=== PATIENT | male | born 1960 | race Caucasian/White ===

== ENCOUNTER → 2024-01-13 08:04 | Outpatient (REF) | payer MEDICARE, OTHER, SELFPAY | LOC: HWRAD 08:04 | PROVIDERS: ATTENDING PHYSICIAN Internal Medicine Hematology & Oncology; FAMILY PHYSICIAN Family Medicine | DX: Z87.891 Personal history of nicotine dependence (principal) | CPT/HCPCS: 71271 ==

== ENCOUNTER → 2024-05-05 13:29 | Outpatient (REF) | payer MEDICARE, OTHER, SELFPAY | LOC: RCS 13:29 | PROVIDERS: ATTENDING PHYSICIAN Orthopaedic Surgery; FAMILY PHYSICIAN Family Medicine | DX: Z01.818 Encounter for other preprocedural examination (principal) | CPT/HCPCS: 93005 ==

== ENCOUNTER → 2024-05-13 07:49 | Outpatient (REF) | payer MEDICARE, OTHER, SELFPAY | LOC: CLAB 07:49 | PROVIDERS: ATTENDING PHYSICIAN Orthopaedic Surgery | DX: M72.0 Palmar fascial fibromatosis [Dupuytren] (principal) | CPT/HCPCS: 88304 ==

== ENCOUNTER → 2024-10-23 10:02 | Outpatient (REF) | payer MEDICARE, OTHER, SELFPAY | LOC: PAVMRI 10:02 | PROVIDERS: ATTENDING PHYSICIAN Pain Medicine Interventional Pain Medicine; FAMILY PHYSICIAN Family Medicine | DX: M54.16 Radiculopathy, lumbar region (principal) | CPT/HCPCS: 72148 ==

== ENCOUNTER → 2025-01-20 08:40 | Outpatient (REF) | payer MEDICARE, OTHER, SELFPAY | LOC: HWRAD 08:40 | PROVIDERS: ATTENDING PHYSICIAN Nurse Practitioner Primary Care; FAMILY PHYSICIAN Family Medicine | DX: Z87.891 Personal history of nicotine dependence (principal) | CPT/HCPCS: 71271 ==

== ENCOUNTER → 2025-02-07 07:15 | Outpatient (REF) | payer MEDICARE, OTHER, SELFPAY ==
[2025-02-07 10:03] LABS: % Basophils 0.7 % (0-2); % Eosinophils 3.6 % (0-6); % Immature Granulocytes 0.5 % (0-0.5); % Lymphocytes 35.6 % (20.5-51.1); % Monocytes 11.3 % (1.7-9.3); % Neutrophils 48.3 % (42.2-75.2); Absolute Eosinophils 0.2 10^3/uL (0-0.7); Absolute Monocytes 0.6 10^3/uL (0.1-0.6); Absolute Neutrophils 2.7 10^3/uL (1.4-6.5); Hematocrit 44.2 % (39.0-52.0); Hemoglobin 15.1 g/dL (13.0-18.0); Mean Corp Hgb Conc. 34.2 g/dL (33.0-37.0); Mean Corpuscular Hgb 30.9 pg (27.0-31.0); Mean Corpuscular Volume 90.6 fL (80.0-94.0); Nucleated Red Blood Cells % 0 % (-); Platelet Count 236 10^3/uL (130-400); Red Blood Cell Count 4.88 10^6/uL (4.70-6.10); Red Cell Dist. Width 12.1 % (11.5-14.5); White Blood Cell Count 5.6 10^3/uL (4.8-10.8)
== END ==
LOC: HWLAB 07:15
PROVIDERS: ATTENDING PHYSICIAN Internal Medicine Hematology & Oncology; FAMILY PHYSICIAN Family Medicine
DX: C92.11 Chronic myeloid leukemia, BCR/ABL-positive, in remission (principal)
CPT/HCPCS: 36415; 81206; 85025

== ENCOUNTER 2025-08-30 22:12 | Emergency (ER) | payer MEDICARE, OTHER, SELFPAY ==
[2025-08-30 22:16] VITALS: BP 132/79
[2025-08-30 22:56] VITALS: BMI 27.0
--- NOTE | 2025-08-30 23:10 | ED.GENMED ---
History of Present Illness
General
Chief Complaint: Musculo-Skeletal Complaint
Source: patient
Time Seen by Provider: 08/30/25 23:04
History of Present Illness
History of Present Illness:
65-year-old male presents emergency room complaint right wrist pain. Patient began having pain this morning. He noticed when he woke up. Pain seemed to increased in intensity throughout the day. It is worse with movement of the wrist. No fever,
chills, nausea or vomiting. He denies any recent injury that he can recall. Patient is right-hand dominant. No known history of gout. No previous operations to that with this wrist. Patient took Flexeril primarily for back pain earlier this
evening without any significant change in the wrist pain.
Past History
Past History
ED Past Medical History: Other (Colon polyps)
Social History
Tobacco: Smoker
Alcohol: Occasional
Family History
Family History: Other (Colon cancer)
Phy Exam
Physical Exam
Physical Exam:
General: Awake, Alert, Oriented X3. No acute distress.
Vitals: unremarkable
Head: Atraumatic
Eyes: Pupils equal, EOMI
Throat: Airway intact, no exudates
Neck: Trachea midline
Neuro: Nonfocal
Skin: Warm, dry, no rash
Extremities: pulses equal b/l. Pain to palpation over the wrist particular the volar area. Patient experiences pain with flexion and extension at the wrist. There is significant pain with range of motion of the fingers. The wrist itself is not
particularly erythematous or warm.
Course
Orders/Labs/Results
Orders:
Orders
08/30/25 23:00
CR Wrist - Right Min 3 Views Urgent
Comment:
Reason For Exam: wrist pain
08/30/25 23:10
Acetaminophen [Tylenol] 1,000 mg PO NOW STA
Ibuprofen [Motrin] 600 mg PO NOW STA
08/31/25 00:11
Prednisone [Deltasone] 50 mg PO NOW STA
Vital Signs
Initial and Last Documented VS:
Initial Vital Signs
Temp Pulse Resp BP Pulse Ox
98.4 F 77 20 132/79 95
08/30/25 22:16 08/30/25 22:16 08/30/25 22:16 08/30/25 22:16 08/30/25 22:16
Last Documented Vital Signs
Temp Pulse Resp BP Pulse Ox
98.4 F 63 18 143/95 96
08/30/25 22:16 08/31/25 00:40 08/31/25 00:40 08/31/25 00:40 08/31/25 00:40
MDM/Problems Addressed
Differential Diagnosis Includes:
Fracture, arthritis, crystal arthropathy
MDM/Problems Addressed:
Patient presents with right wrist pain. Imaging shows no acute abnormality. Overall presentation seems most consistent with gouty type inflammatory process. I do not believe the patient has a septic joint and is the joint is not erythematous
particularly warm. He is afebrile. Will treat with steroids, Tylenol and NSAIDs follow-up with Ortho
*Radiology
Radiology exam reviewed: preliminary read by ED provider (99 the patient's wrist x-ray)
*Pulse Oximetry
SaO2: 95
Oxygen Mode of Delivery: Room air
Patient hypoxic: no
*Critical Care Note
Total Time (30-74mins, 75-104mins- exclusive of procedures): Not Applicable
ED Attending Note
-
Portions of this chart may have been created with voice recognition software.� Occasional wrong word or��sound alike� substitutions may have occurred due to the inherent limitations of voice recognition software.
Discharge Plan
Departure
Patient Disposition: Home (Routine Discharge)
Date of Disposition: 08/31/25
Time of Disposition: 00:12
Patient with high blood pressure during this ER visit?: No
Condition: Good
Discharge Problem:
Wrist pain, right
Instructions: Swollen Joints (DC)
Prescriptions:
New
prednisone 20 mg tablet
40 mg PO DAILY Qty: 8 0RF
No Action
cholecalciferol (vitamin D3) [Vitamin D3] 50 mcg (2,000 unit) Capsule
25 mcg PO DAILY
levothyroxine 88 mcg Capsule
88 mcg PO DAILY
coQ10 (ubiquinol)
1 tab PO DAILY
rosuvastatin 10 mg Tablet
10 mg PO HS
mupirocin 2 % ointment
1 applic intranasal BID Qty: 1 0RF
Patient Comments:
started treatment on thursday09/12/23 and was taking BID, last took at home 09/15/23 in am
docusate sodium 100 mg Capsule
100 mg PO BID Qty: 30 0RF
gabapentin 300 mg Capsule
300 mg PO TID Qty: 18 0RF
Rx Instructions:
Take 3x daily for 3 days, then 2x daily for 3 days, then once daily for 3 days, then STOP.
famotidine 20 mg Tablet
20 mg PO HS Qty: 30 0RF
Rx Instructions:
Take nightly while on post-op pain meds to reduce GI upset.
oxycodone 5 mg Tablet
5 - 10 mg PO Q4H PRN (Reason: moderate-severe pain) Qty: 35 0RF
Rx Instructions:
1 tab for moderate pain, 2 if severe.
Dx lumbar DDD with radiculopathy
sennosides [Senna Lax] 8.6 mg Tablet
17.2 mg PO BID Qty: 30 0RF
acetaminophen [Pain Relief ES (acetaminophen)] 500 mg Tablet
1,000 mg PO Q6 Qty: 60 0RF
Rx Instructions:
DO NOT exceed >4000 mg daily.
ondansetron HCl 4 mg tablet
4 mg PO Q6H PRN (Reason: nausea and vomiting) Qty: 30 0RF
lorazepam 1 mg tablet
1 mg PO HS PRN (Reason: insomnia/muscle spasms) Qty: 20 0RF
Rx Instructions:
Caution with Oxycodone - can cause drowsiness.
Take only as directed.
amlodipine 5 mg Tablet
5 mg PO DAILY Qty: 0 0RF
Rx Instructions:
HOLD IF systolic blood pressure <130 while on Oxycodone.
aspirin 81 mg Tablet,Delayed Release (Dr/Ec)
81 mg PO DAILY Qty: 0 0RF
Rx Instructions:
May resume upon discharge.
tamsulosin [Flomax] 0.4 mg capsule
0.4 mg PO DAILY Qty: 7 0RF
Rx Instructions:
Take daily for 1 week for urinary retention prevention.
HOLD IF systolic blood pressure <100.
Referrals:
Alonso Roy MD [Family Provider, Family Practice]
Guy Hung MD [Active, Orthopedics]
Activity Restrictions/Additional Instructions:
I believe your wrist pain is due to an inflammatory process of the wrist. Either arthritis or perhaps gout. Will treat you with anti-inflammatory medication, steroid. Rest your wrist is much as possible. Call Dr. Peck's office on Thursday to
make an appointment. You can take 600mg of ibuprofen every 6 hours for pain.
Interventions
Interventions:
*Risk Screen - Suicide Last Done: 08/30/25 22:16
*General Assessment Last Done: 08/30/25 22:16
*Neglect/Abuse Screening Last Done: 08/30/25 22:16
*ED- Fall Risk Assessment Last Done: 08/30/25 23:03
*ED COVID-19 Vaccine History Last Done: 08/30/25 22:16
*ED Influenza Vaccine History Last Done: 08/30/25 22:16
*Nursing Disposition Last Done: 08/31/25 00:42
ED-Musculoskeletal Assessment Last Done: 08/30/25 22:56
Discharge Date and Time
Discharge Date/Time: 08/31/25 00:44
Print Language: TURKISH
[2025-08-30] MEDS: MOTRIN 600 MG PO (23:47)
[2025-08-30] MEDS: TYLENOL 1000 MG PO (23:47)
[2025-08-31] MEDS: DELTASONE 50 MG PO (00:38)
[2025-08-31 00:40] VITALS: BP 143/95
== END 2025-08-31 00:44 | disposition home or self-care (01) ==
LOC: EMR 22:12
PROVIDERS: EMERGENCY PHYSICIAN Emergency Medicine; FAMILY PHYSICIAN Family Medicine
DX: M25.531 Pain in right wrist (principal); F17.200 Nicotine dependence, unspecified, uncomplicated
CPT/HCPCS: 99283; 73110